=== PATIENT | male | born 1975 | race Caucasian/White ===

== ENCOUNTER 2016-06-25 17:09 | Outpatient (CLI) | payer OTHER | END 2016-06-25 17:10 | disposition home or self-care (01) | DX: S42.025A Nondisplaced fracture of shaft of left clavicle, initial encounter for closed fracture (principal) ==

== ENCOUNTER 2016-07-27 08:47 | Outpatient (CLI) | payer OTHER | END 2016-07-27 08:48 | disposition home or self-care (01) | DX: E04.1 Nontoxic single thyroid nodule (principal) ==